=== PATIENT | male | born 1945 | race Caucasian/White ===

== ENCOUNTER → 2017-03-13 | Outpatient (CLI) | payer OTHER ==
--- NOTE | 2017-03-13 13:47 | MRI ---
MRI lumbar spine without contrast Indication: Left-sided sciatica and lower back pain for 2 weeks Technique: Multiplanar, multi sequence imaging of the lumbar spine without IV contrast administration . Findings: There is minimal anterolisthesis of L4 with approximate 2 mm anterior translation of the L4 vertebral body. There is no localizing or pathologic marrow signal abnormality within the lumbar spi ne. No vertebral height loss or cortical disruption. There is diffuse disc desiccation with mild disc space loss at L5-S1. No prevertebral or paraspinal soft tissue swelling. The conus has a normal term ination. Imaging of the upper abdomen demonstrates no abnormality. At T12-L1 unremarkable At L1-2 mild facet arthropathy of spinal canal or bony neural foraminal stenosis. At L2-3 mild disc bulge and moderate facet arthropathy causes very mild spinal canal stenosis without bony neural foraminal stenosis. At L3-4 broad-based disc bulge and moderate facet arthropathy causes mild spinal canal stenosis witho ut bony neural foraminal narrowing. At L4-5 large broad-based disc bulge with a right lateralizing protrusion, mild anterolisthesis along with advanced facet arthropathy and severe ligamentum flavum hypertrophy causes moderate to severe s nava canal stenosis with moderate to severe right and mild left-sided bony neural foraminal stenosis . At L5-S1 broad-based disc bulge with severe facet arthropathy causes mild spinal canal stenosis with mild bilateral bony neural foraminal stenosis. 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 Reported By:
== END | disposition home or self-care (01) | DRG 552 ==
LOC: RAD 09:36
PROVIDERS: ATTEND Specialist
DX: M53.9 Dorsopathy, unspecified (principal)
CPT/HCPCS: 72148

== ENCOUNTER → 2017-03-19 | Day surgery (SDC) | payer OTHER ==
[~2017-03-19] MED LIST: KENALOG INJ 40 MG IM ONE; MARCAINE 0.25% INJ ONE; XYLOCAINE-MPF 1% ONE
--- NOTE | 2017-03-19 13:00 | DR.UPDATE ---
H&P Update History and Physical Update: History and Physical reviewed and patient examined. Changes noted: NO Yes with the following:Agree with H&P from Dr Jimenes. will proceed with TFESI L4-5 left
[2017-03-19 13:39] VITALS: BP 166/76
== END ==
LOC: SURG1 12:10
PROVIDERS: ATTEND Specialist
DX: M48.061 Spinal stenosis, lumbar region without neurogenic claudication (principal)
CPT/HCPCS: 64483; 76000; S0020; J3301